=== PATIENT | female | born 2000 | race African-American/Black ===

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

== ENCOUNTER 2019-06-04 16:02 | Emergency (ER) | payer BC, MEDICAID ==
[~2019-06-04] VITALS: Ht 154.9 cm; Wt 50.0 kg
[2019-06-04] MEDS ORDERED: PREDNISONE 20MG TABLET PO STA (16:51)
[2019-06-04] MEDS ORDERED: ALBUTEROL (0.083%) 2.5MG/3ML NEB HHN STA (16:51)
[2019-06-04] MEDS ORDERED: IPRATROPIUM BROMIDE (0.02%) 0.5MG/2.5ML NEB HHN STA (16:51)
[2019-06-04 18:52] VITALS: BP 122/78
== END 2019-06-04 19:14 | disposition home or self-care (01) ==
LOC: ER 16:02
DX: J45.901 Unspecified asthma with (acute) exacerbation (principal)
CPT/HCPCS: 94640; 99285; J7512; J7611

== ENCOUNTER 2019-07-31 04:38 | Emergency (ER) | payer BC, MEDICAID ==
[~2019-07-31] VITALS: Ht 157.5 cm; Wt 50.0 kg
[2019-07-31] MEDS ORDERED: SODIUM CHLORIDE 0.9% 1,000 ML IV ONE ×2 (05:30→05:40)
[2019-07-31] MEDS ORDERED: ALBUTEROL (0.5%) 2.5MG/0.5ML NEB HHN ONE (05:30)
[2019-07-31] MEDS ORDERED: IPRATROPIUM BROMIDE (0.02%) 0.5MG/2.5ML NEB HHN ONE (05:30)
[2019-07-31] MEDS ORDERED: METHYLPREDNISOLONE SOD SUCC 125 MG/2 ML VIAL IV ONE (05:30)
[2019-07-31 06:23] LABS: BASOPHILS % 0.4 % (0.0-2.0); EOSINOPHILS % 3.1 % (0.0-5.0); HEMATOCRIT. 46.1 % (36.0-48.0); HEMOGLOBIN. 15.1 g/dL (12.0-16.0); LYMPHOCYTES % 23.8 % (20.0-50.0); MEAN CORPUSCULAR HEMOGLOBIN 28.3 pg (28.0-32.0); MEAN CORPUSCULAR VOLUME 86.5 fL (81.0-99.0); MEAN PLATELET VOLUME 7.6 fl (7.4-10.4); MONOCYTES % 5.2 % (2.0-8.0); NEUTROPHILS % 67.5 % (40.0-76.0); PLATELET 479 x1000/uL (130-400); RED BLOOD CELL COUNT 5.33 mill/uL (4.2-5.4)
[2019-07-31 06:31] LABS: CHLORIDE 105 mEq/L (98-107)
[2019-07-31 06:36] LABS: HCG SCREEN NEGATIVE
[2019-07-31] MEDS ORDERED: ALBUTEROL (0.083%) 2.5MG/3ML NEB HHN STA (07:31)
[2019-07-31 08:53] VITALS: BP 116/67
== END 2019-07-31 08:57 | disposition home or self-care (01) ==
LOC: ER 04:38
DX: J45.901 Unspecified asthma with (acute) exacerbation (principal)
CPT/HCPCS: 36415; 71045; 80048; 84703; 85025; 94640; 94644; 96374; 99285; J2930; J7030; Z7610

== ENCOUNTER 2021-01-31 12:46 | Emergency (ER) | payer MEDICAID ==
[~2021-01-31] VITALS: Ht 160 cm; Wt 55.0 kg
[2021-01-31] MEDS ORDERED: METHYLPREDNISOLONE SOD SUCC 125 MG/2 ML VIAL IV STA (13:06)
[2021-01-31] MEDS ORDERED: IPRATROPIUM BROMIDE (0.02%) 0.5MG/2.5ML NEB HHN STA (13:06)
[2021-01-31] MEDS ORDERED: ALBUTEROL (0.083%) 2.5MG/3ML NEB HHN STA (13:06)
[2021-01-31] MEDS ORDERED: SODIUM CHLORIDE 0.9% 1,000 ML IV ONE (13:15)
[2021-01-31 15:39] VITALS: BP 113/83
[2021-01-31] MEDS ORDERED: ALBU6.7H9 INH (15:46)
[2021-01-31] MEDS ORDERED: P20 MT (15:46)
== END 2021-01-31 16:12 | disposition home or self-care (01) ==
LOC: ER 12:46
DX: J45.901 Unspecified asthma with (acute) exacerbation (principal); F17.200 Nicotine dependence, unspecified, uncomplicated
CPT/HCPCS: 71045; 81025; 94640; 96361; 96374; 99283; J2930; J7030; Z7610

== ENCOUNTER 2025-05-20 03:10 | Emergency (ER) | payer MEDICAID ==
[~2025-05-20] VITALS: Ht 162.6 cm; Wt 54.0 kg
[~2025-05-20 03:10] MED LIST changes: +ALBU6.7H3 INH; +P20 MT
[2025-05-20 03:12] VITALS: O2SAT 99
[2025-05-20] MEDS ORDERED: BUDE6.9H INH (03:59)
[2025-05-20] MEDS ORDERED: ALBU90AE INH (03:59)
[2025-05-20 04:39] VITALS: BP 119/81; PULSE 100; RESP 18; TEMP 36.7; O2SAT 99
== END 2025-05-20 04:44 | disposition home or self-care (01) ==
LOC: ER 03:10
DX: J45.901 Unspecified asthma with (acute) exacerbation (principal); Z79.51 Long term (current) use of inhaled steroids; Z79.899 Other long term (current) drug therapy
CPT/HCPCS: 93005; 99283